=== PATIENT | female | born 1930 | race Caucasian/White ===

== ENCOUNTER → 2018-10-15 | Outpatient (REF) | payer MEDICARE, BC ==
[~2018-10-15] MED LIST: ACETAMIN500 M3 PO; ADLT ASA LOW81 MG PO; ATENOLOL25 MG PO; ATENOLOL50 MG PO; ATIVAN0.5 MG OR; ATIVAN0.5 MG PO; BACTROBAN21 EX; CHILD ASA81 MG OR; CRESTOR5 MG PO; D 10001000 UNIT PO; DIOVAN160 MG PO; DIOVAN40 MG OR; FLORASTOR250 M1 PO; HYDROCHLOROT25 MG OR; IBUPROFEN800 MG OR; LUNESTA3 MG OR; OMEPRAZOLE40 MG PO; PROTONIX40 MG OR; SERTRALINE HCL50 MG PO; TENORMIN OR; ULTRACET OR; [UNRECOGNIZED DRUG - REMARK] PO
[2018-10-15 08:41] LABS: ANION GAP 16 (6-22 (CALC)); BUN 26 mg/dL (8-23); BUN/CREATININE RATIO 26 (12-20 (CALC)); CARBON DIOXIDE 27 mmol/l (22-30); CHLORIDE 103 mmol/l (95-108); GFR 52 ML/MIN (>=60 (CALC)); GFR FOR AFR.AMER. > 60 ML/MIN (>=60 (CALC)); POTASSIUM 4.7 mmol/l (3.5-5.1); SODIUM 141 mmol/l (137-146)
== END | disposition home or self-care (01) ==
LOC: LAB 07:43
PROVIDERS: ATTEND Nurse Practitioner
DX: E11.65 Type 2 diabetes mellitus with hyperglycemia (principal); E11.9 Type 2 diabetes mellitus without complications